=== PATIENT | male | born 1970 | race African-American/Black ===

== ENCOUNTER 2017-02-25 13:58 | Emergency (ER) | payer MEDICAID ==
[~2017-02-25] VITALS: Ht 175.3 cm; Wt 80.0 kg
[2017-02-25] MEDS ORDERED: SODIUM CHLORIDE 0.9% 1,000 ML IV ONE (14:40)
[2017-02-25 15:15] LABS: EOSINOPHILS % 9.3 % (0.0-5.0); HEMATOCRIT. 44.7 % (42.0-52.0); HEMOGLOBIN. 14.8 g/dL (14.0-18.0); LYMPHOCYTES % 33.9 % (20.0-50.0); MEAN CORPUSCULAR HEMOGLOBIN 28.9 pg (28.0-32.0); MEAN CORPUSCULAR HGB CONC 33.2 g/dL (31.0-37.0); MEAN PLATELET VOLUME 8.7 fl (7.4-10.4); MONOCYTES % 7.2 % (2.0-8.0); NEUTROPHILS % 48.6 % (40.0-76.0); PLATELET 161 x1000/uL (130-400); RED BLOOD CELL COUNT 5.13 mill/uL (4.7-6.1); RED CELL DISTRIBUTION WIDTH 14.8 % (11.6-14.6); WHITE BLOOD COUNT 7.8 x1000/uL (4.5-11.0)
[2017-02-25 15:17] LABS: CHLORIDE 104 mEq/L (98-107)
[2017-02-25 15:18] LABS: INDEX HEMOLYSI 1 (1-3); INDEX ICTERIC 1 (1-4); INDEX LIPEMIC 1 (1-3)
[2017-02-25 15:26] LABS: ALANINE AMINOTRANSFERASE 41 IU/L (13-61); ALBUMIN 3.5 g/dL (3.4-5.0); ANION GAP 10; CALCIUM 9.4 mg/dL (8.5-10.1); CARBON DIOXIDE 28 mEq/L (21-32); UREA NITROGEN BLOOD 16 mg/dL (7-21)
[2017-02-25 15:33] LABS: NT PRO B-TYPE NATRIURETIC PEP 21 pg/mL (5-125); eGFR > 60 mL/min (>60)
[2017-02-25 15:51] LABS: CLARITY URINE CLEAR (CLEAR); COLOR URINE YELLOW (YELLOW); GLUCOSE URINE NEGATIVE (NEGATIVE); KETONES URINE NEGATIVE (NEGATIVE); LEUKOCYTE ESTERASE URINE NEGATIVE (NEGATIVE); NITRITE URINE NEGATIVE (NEGATIVE); OCCULT BLOOD URINE NEGATIVE (NEGATIVE); PROTEIN URINE 2+ (NEGATIVE); SPECIFIC GRAVITY URINE 1.022 (1.005-1.030)
[2017-02-25 15:54] LABS: BACTERIA URINE NONE SEEN; CALCIUM PHOSPHATE CRYSTALS UR NONE SEEN /lpf; SQUAMOUS EPITHELIAL CELL URINE NONE SEEN /lpf (RARE/1+); WAXY CASTS URINE NONE SEEN /lpf; WBC URINE 0-2 /hpf (0-2); YEAST URINE NONE SEEN
[2017-02-26 03:26] VITALS: BP 107/83
== END 2017-02-26 03:31 | disposition home or self-care (01) ==
LOC: ER 14:05
DX: R53.1 Weakness (principal); R63.4 Abnormal weight loss; R62.7 Adult failure to thrive; R07.89 Other chest pain; Z68.26 Body mass index [BMI] 26.0-26.9, adult; E11.9 Type 2 diabetes mellitus without complications; F20.9 Schizophrenia, unspecified; Z89.221 Acquired absence of right upper limb above elbow
CPT/HCPCS: 36415; 71010; 80053; 81001; 83880; 84443; 85025; 93005; 96360; 96361; 99285; J7030; Z7610